=== PATIENT | female | born 1980 ===

== ENCOUNTER 2020-07-08 06:35 | Day surgery (SDC) | payer OTHER | END 2020-07-08 15:10 | disposition home or self-care (01) | LOC: CIR.AMB 06:35 | PROVIDERS: ATTEND Surgery | DX: D24.2 Benign neoplasm of left breast (principal) ==

== ENCOUNTER 2020-07-14 15:49 | Emergency (ER) | payer OTHER ==
[~2020-07-14] VITALS: Ht 157.5 cm; Wt 61.2 kg
== END 2020-07-14 20:55 | disposition home or self-care (01) ==
LOC: ER 15:49
DX: R25.9 Unspecified abnormal involuntary movements (principal)